=== PATIENT | male | born 1950 | race Caucasian/White ===

== ENCOUNTER 2019-05-28 09:05 | Observation (INO) ==
--- NOTE | 2019-05-28 09:45 | General Surgery Consult Note ---
History of Present Illness Patient information: Note initiated : 05/28/19 at 9:40 am Service Date, if different from initiated Date: [] Patient: Addy Barnes 69 y/o M admitted on for Left Calf Wound Debridement. Chief Complaint: [] Consult date: 05/27/19 Requesting physician: Clement Mojica (Wound Care . LEFT leg wound) History of present illness: I saw this patient along with Dr. Jorge Morrison in wound care center and subsequently discussed his presentation with "Ted Mojica PA-C in ER. I have reviewed the work up and ant gone through the lab results, imaging studies ordered. This is an established patient at wound care center. He presents with worsening of skin and skin structures infection / inflammation. He needs OR surgical debridement with Versajet. Tissue samples to be obtained for biopsies and cultures at the time of the procedure. Medications and Allergies Home Medications Medication Instructions Recorded Confirmed Type Albuterol Sulfate 1 puff INH Q6H PRN 05/27/19 05/27/19 History Aspirin [Adult Aspirin] 81 mg PO DAILY 05/27/19 05/27/19 History Bisoprolol-Hctz 5-6.25 mg Tab 1 tab PO DAILY 05/27/19 05/27/19 History Cetirizine HCl [Zyrtec] 10 mg PO DAILY 05/27/19 05/27/19 History Diclofex Dc Pack 1 dose TOPICAL Q6H PRN 05/27/19 05/27/19 History Diphenoxylat-Atrop 2.5-0.025/5 1 tab PO Q6H 05/27/19 05/27/19 History Efudex 1 dose TOPICAL BID 05/27/19 05/27/19 History FLUoxetine 40 mg PO DAILY 05/27/19 05/27/19 History Fluorouracil 1 dose TOPICAL DAILY 05/27/19 05/27/19 History Hydrochlorothiazide [Oretic] 1 tab PO DAILY 05/27/19 05/27/19 History Lisinopril 2.5 mg PO DAILY 05/27/19 05/27/19 History Lisinopril 20 mg PO DAILY 05/27/19 05/27/19 History Omeprazole 20 mg PO DAILY 05/27/19 05/27/19 History One Daily Multivitamin 1 tab PO DAILY 05/27/19 05/27/19 History Pravastatin 40 mg PO DAILY 05/27/19 05/27/19 History Prazosin 5 mg PO DAILY 05/27/19 05/27/19 History Preservision Areds Softgel 2 cap PO DAILY 05/27/19 05/27/19 History Tamsulosin 0.4 cap PO DAILY 05/27/19 05/27/19 History Vitamin D3 2 tab PO DAILY 05/27/19 05/27/19 History traZODone HCL [Trazodone HCl] 1 tab PO DAILY 05/27/19 05/27/19 History Allergies Allergy/AdvReac Type Severity Reaction Status Date / Time No Known Drug Allergies Allergy Unverified 05/27/19 13:31 Exam - General physical appearance well developed, well nourished, no distress - Eyes PERRL, normal ocular movement - ENT normal pinna, normal mucosa, no congestion - Head Head exam IM: Present: atraumatic, normocephalic - Neck no masses, trachea midline, no venous distension - Cardiovascular Cardiovascular exam IM: Present: normal rate and rhythm - Respiratory normal respiratory effort, clear to auscultation - Abdomen Abdomen: Present: soft, non tender, bowel sounds - Integumentary Present: other (COMPLEX Skin ans skin structure infection, LEFT lower medial leg) - Neurologic Present: other (No neurological deficits) - Musculoskeletal Present: normal posture - Psychiatric Present: oriented to time, oriented to person, oriented to place, speech is normal Results - Labs All other labs normal. Assessment and Plan (1) Sepsis Status: Acute Priority: Medium Comment: Assessment: Complicated skin and skin structure infection LEFT lower leg. Plan: OR surgical debridemetn with VERSAJET irrigation and tissue biopsies and cultures from deep tissues. (2) Nonhealing skin ulcer Status: Acute Qualifiers: Non-pressure ulcer stage: limited to breakdown of skin Qualified Code(s): L98.491 - Non-pressure chronic ulcer of skin of other sites limited to breakdown of skin
[2019-05-28] MEDS ORDERED: VANCOMYCIN 1,000 MG in 0.9 % SODIUM CHLORIDE 250 ML IV ONE (10:07)
[2019-05-28] MEDS ORDERED: cefTRIAXone 1 GM VIAL IV ONE (10:08)
[2019-05-28] MEDS ORDERED: GENTAMICIN SULFATE 800 MG/20 ML VIAL IR ONE (10:49)
[2019-05-28] MEDS ORDERED: fentaNYL 100 MCG/2 ML VIAL IV ONE (11:59)
[2019-05-28] MEDS ORDERED: PROPOFOL 200 MG/20 ML VIAL IV ONE (11:59)
[2019-05-28] MEDS ORDERED: KETAMINE 100 MG/ML ML IV ONE (11:59)
[2019-05-28] MEDS ORDERED: ONDANSETRON 4 MG/2 ML VIAL IV ONE (11:59)
[2019-05-28] MEDS ORDERED: GLYCOPYRROLATE 0.2 MG/ML VIAL IV ONE (11:59)
[2019-05-28] MEDS ORDERED: DEXAMETHASONE 10 MG/ML VIAL IV ONE (11:59)
[2019-05-28] MEDS ORDERED: LIDOCAINE HCL/PF 100 MG/5 ML SYRINGE IV ONE (11:59)
[2019-05-28] MEDS ORDERED: ONDANSETRON 4 MG/2 ML VIAL IV PRN (12:02)
[2019-05-28] MEDS ORDERED: fentaNYL 100 MCG/2 ML VIAL IV PRN (12:02)
[2019-05-28] MEDS ORDERED: IPRATROPIUM/ALBUTEROL 3 ML AMPUL.NEB NEB PRN (12:02)
[2019-05-28] MEDS ORDERED: FLUMAZENIL 0.1 MG/ML ML IV PRN (12:02)
[2019-05-28] MEDS ORDERED: PROMETHAZINE 25 MG/ML VIAL IV PRN (12:02)
[2019-05-28] MEDS ORDERED: MEPERIDINE 25 MG/ML SYRINGE IV PRN (12:02)
[2019-05-28] MEDS ORDERED: ATROPINE SULFATE 0.4 MG/ML VIAL IV PRN (12:02)
[2019-05-28] MEDS ORDERED: METOPROLOL TARTRATE 5 MG/5 ML VIAL IV PRN (12:02)
[2019-05-28] MEDS ORDERED: ACETAMINOPHEN 1,000 MG/100 ML BOTTLE IV ONE (12:02)
[2019-05-28] MEDS ORDERED: NALOXONE HCL 0.4 MG/ML VIAL IV PRN (12:02)
[2019-05-28] MEDS ORDERED: METHOCARBAMOL 1,000 MG/10 ML VIAL IV PRN (12:02)
[2019-05-28] MEDS ORDERED: HYDROmorphone 2 MG/ML VIAL IV PRN (12:02)
[2019-05-28] MEDS ORDERED: ePHEDrine 50 MG/ML AMPUL IV PRN (12:02)
[2019-05-28] MEDS ORDERED: diphenhydrAMINE 50 MG/ML VIAL IV PRN (12:02)
[2019-05-28] MEDS ORDERED: LACTATED RINGERS 1,000 ML IV SCH (12:15)
--- NOTE | 2019-05-28 13:00 | Brief Operative Note ---
Date of procedure: 05/28/19 Pre-op diagnosis: Dermatitis / Cellulitis CSSSI Left lower medial leg and calf Post-op diagnosis: same Procedure: Versajet debridement and deep tissue for c/s. Wound dimensions Left medial superior 4 x 5 x 0.5 CM Left medial inferior 6 x 7 x 0.5 CM Grafts/Implants: No Anesthesia: GLMA Complications: none Surgeon: Marquise Mckoy Estimated blood loss (cc): 10 Specimens Removed/Pathology: other Condition: stable Disposition: other (Operation well toelrated. ALL counts reported to be correct.)
[2019-05-28] MEDS ORDERED: oxyCODONE/APAP 5/325MG TABLET PO PRN (13:25)
[2019-05-28] MEDS ORDERED: oxyCODONE/APAP 5/325MG TABLET PO ONE ×2 (13:41→14:48)
--- NOTE | 2019-05-28 13:45 | Operative Note ---
DATE OF OPERATION: 05/28/2019 PREOPERATIVE DIAGNOSES: 1. Dermatitis, cellulitis left lower medial calf and leg. -Patient with a history of venous leg ulcers and varicose veins. 2. Acute complicated skin and skin structure inflammation/infection. POSTOPERATIVE DIAGNOSES: 1. Dermatitis, cellulitis left lower medial calf and leg- Patient with a history of venous leg ulcers and varicose veins. 2. Acute complicated skin and skin structure inflammation/infection. OPERATION: VersaJet debridement and deep tissue for c/s. WOUND DIMENSIONS: Left medial superior 4 x 5 x 0.5 cm, left medial inferior 6 x 7 x 0.5 cm. ANESTHESIA: General laryngeal mask airway. BACK ROLL LATHE OPERATOR: Og Larose CRNA SURGEON: Marquise Mckoy M.D. COMPLICATIONS: None. BLOOD LOSS: About 10 mL. INSTRUMENT COUNT: Count of all swabs, instruments and needles was reported to be correct. This is a 69-year-old gentleman who was initially seen in the wound care clinic for nonhealing wounds of left lower medial leg. He was referred to ER yesterday due to change in his wounds and for cellulitis. acute inflammation, and tenderness along the ulcer site. It was clearly not possible to treat / debride this at the clinic. The patient is therefore taken to the operating room for OR debridement with Versajet and obtaining deep tissue for culture and sensitivities. Preoperative workup was unremarkable for any acute abnormalities. A venous Doppler was negative for deep venous thrombosis. PROCEDURE NOTE: After obtaining informed consent, patient was taken to the operating room. He was anesthetized uneventfully in supine position using laryngeal mask airway. Timeout was called. Intravenous antibiotics were given. Preoperative photographs were taken. The left lower extremity was widely cleaned, prepped and draped from the toes up to the lower thigh. We first proceeded to clean this wound by using pickups and scissors. The devitalized portion of the demarcated skin edges were excised. Later, we used a VersaJet ultrasound-guided hydro-debrider dissector. One liter of normal saline mixed with 800 mg of gentamicin solution was used. Careful tangential debridement of the wounds was carried out from margins toward the center. There was an intervening gap between the two wounds. This was carefully cleaned and debrided as well. Upon completion, the wound bed was clean with capillary back bleed from wound bed. We obtained deep tissue biopsy from the base of the ulcer, along the medial lower leg area. Hemostasis was achieved with pressure and elevation. Dressings consisted of Xeroform gauze, 4 x 4 gauze, Kerlix, Coban and RJ bandages respectively. She recovered from anesthesia uneventfully. She was taken to in stable condition. After the operation, I went out and spoke with patient's . PLAN: The plan is to observe the patient in the recovery area. Subject to satisfactory progress, the patient will be sent home and followed at the clinic or admitted for extended recovery. VD:analisa Job ID: [id number] Doc ID: [id number] Marquise WEATHERS
[2019-05-28] MEDS: oxyCODONE/APAP 5/325MG TABLET PO PRN ×2 (19:48→23:59)
[2019-05-29] MEDS: oxyCODONE/APAP 5/325MG TABLET PO PRN ×5 (04:31→18:58)
[2019-05-29] MEDS ORDERED: oxyCODONE/APAP 10/325MG TABLET PO PRN (08:55)
[2019-05-29] MEDS ORDERED: oxyCODONE/APAP 5/325MG TABLET PO PRN (09:02)
--- NOTE | 2019-05-29 10:53 | General Surgery Progress Note ---
Subjective Patient reports: still having pain, voiding w/o difficulty, no flatus, nausea, afebrile Narrative: Note initiated : 05/29/19 at 10:51 am Service Date, if different from initiated Date: [] Patient: Addy Barnes 69 y/o M admitted on for Left Calf Wound Debridement. Chief Complaint: [] Objective Temp Pulse Resp BP Pulse Ox 98.7 F 76 16 106/63 96 05/29/19 08:24 05/29/19 08:24 05/29/19 08:24 05/29/19 04:32 05/29/19 08:24 AVSS No changes AYAN Left leg toes PWD Dressings intact. No breakthrough bleeding. Has NOT gotten OOB Has NOT ambulated yet. - Additional Data Intake & Output - Last 24 hours: Intake & Output 05/27/19 05/28/19 05/29/19 05/30/19 05:59 05:59 05:59 05:59 Intake Total 1870 Output Total 760 350 Balance 1110 -350 Weight 180 lb Assessment and Plan (1) Sepsis Problem details: Assessment: Complicated skin and skin structure infection LEFT lower leg. Plan: OR surgical debridemetn with VERSAJET irrigation and tissue biopsies and cultures from deep tissues. Status: Acute Current Visit: Yes (2) Nonhealing skin ulcer Status: Acute Current Visit: No - Narrative A/P Narrative: Assessment: Post operative pain and nausea. Not back to ADL at this time. Plan: Pain medications adjusted. Will hold discharge for now. Reassess in AM and likely D/C. - Time Spent With Patient Total time spent is greater than 50% in coordination of care (as documented) at patient's floor/unit and/or counseling patient: 15 - 24 minutes
[2019-05-29] MEDS: ZOLPIDEM 5 MG TABLET PO PRN (21:14)
[2019-05-30] MEDS: oxyCODONE/APAP 5/325MG TABLET PO PRN ×5 (01:48→22:50)
[2019-05-30] MEDS ORDERED: POLYETHYLENE GLYCOL 3350 17 GM PACKET PO ONE (11:29)
--- NOTE | 2019-05-30 11:33 | General Surgery Progress Note ---
Subjective Patient reports: pain is less, no bowel movement, afebrile, other (PAINFUL to get OOB abd ambulate. [place]. Has steps to climb to get in.) Narrative: Note initiated : 05/30/19 at 11:30 am Service Date, if different from initiated Date: [] Patient: Addy Barnes 69 y/o M admitted on 05/29/19 for Left Calf Wound Debridement. Chief Complaint: [] Objective Temp Pulse Resp BP Pulse Ox 96.5 F L 62 18 140/82 91 05/30/19 08:15 05/30/19 08:15 05/30/19 08:15 05/30/19 08:15 05/30/19 08:15 AVSS. No changes AYAN. LLE Dressings CDI Toes PWD. Constipated. Labs: Staph aureus Sensitivity pending. - Additional Data Intake & Output - Last 24 hours: Intake & Output 05/28/19 05/29/19 05/30/19 05/31/19 05:59 05:59 05:59 05:59 Intake Total 1870 2030 480 Output Total 760 2275 150 Balance 1110 -245 330 Weight 180 lb Assessment and Plan (1) Sepsis Problem details: Assessment: Complicated skin and skin structure infection LEFT lower leg. Plan: OR surgical debridemetn with VERSAJET irrigation and tissue biopsies and cultures from deep tissues. Status: Acute Current Visit: Yes (2) Nonhealing skin ulcer Status: Acute Current Visit: No - Narrative A/P Narrative: Assessment: Slow progress and resolution of pain. Has NOT ambulated freely. Constipated. Plan: Stool softeners. Physical Therapy eval. Dressing change in AM Likely D/C in AM and f/u at wound clinic - Time Spent With Patient Total time spent is greater than 50% in coordination of care (as documented) at patient's floor/unit and/or counseling patient: 15 - 24 minutes
[2019-05-30] MEDS: ZOLPIDEM 5 MG TABLET PO PRN (21:15)
[2019-05-31] MEDS: oxyCODONE/APAP 5/325MG TABLET PO PRN ×3 (02:34→10:42)
[2019-05-31] MEDS ORDERED: FLU VACC QS2019-20(6MOS UP)/PF 60 MCG/0.5 ML SYRINGE IM ONE (10:00)
[2019-05-31] MEDS ORDERED: PNEUMOCOCCAL 23-VAL P-SAC VAC 0.5 ML SYRINGE IM ONE (10:00)
--- NOTE | 2019-05-31 10:53 | General Surgery Progress Note ---
Subjective Patient reports: feels better, pain is less, bowel movement, afebrile, other (Slept well. Ambulated to Bath Room. No problems reported. He lives near [facility] ID) Narrative: Note initiated : 05/31/19 at 10:48 am Service Date, if different from initiated Date: [] Patient: Addy Barnes 69 y/o M admitted on 05/29/19 for Left Calf Wound Debridement. Chief Complaint: [] Objective Temp Pulse Resp BP Pulse Ox 97.2 F 62 18 159/87 90 05/31/19 07:13 05/31/19 04:00 05/31/19 07:13 05/31/19 07:13 05/31/19 07:13 Patient seen with Mayra AMBRIZ, Wound Care and Amaury AMBRZI. AVSS. no changes AYAN. Primary dressing removed. Significant improvement in wound bed. Granulating surface 100%. NO odor, No warmth. Periwound skin and subcutaneous tissue at baseline. Inflammation resolved. Wound Cultures reviewed. Staph aureus. LIGHT growth. Source adequately treated / wound bed improved. - Additional Data Intake & Output - Last 24 hours: Intake & Output 05/29/19 05/30/19 05/31/19 06/01/19 05:59 05:59 05:59 05:59 Intake Total 1870 2030 2540 Output Total 760 2275 1200 350 Balance 1110 -245 1340 -350 Weight 180 lb 183 lb Assessment and Plan (1) Sepsis Problem details: Assessment: Complicated skin and skin structure infection LEFT lower leg. Plan: OR surgical debridemetn with VERSAJET irrigation and tissue biopsies and cultures from deep tissues. Status: Acute Current Visit: Yes (2) Nonhealing skin ulcer Status: Acute Current Visit: No - Time Spent With Patient Total time spent is greater than 50% in coordination of care (as documented) at patient's floor/unit and/or counseling patient: Assessment: Satisfactory progress. Will now treat with local wound care. OTC pain meds PRN. Patient's is a [employer]. will do dressing changes. F/u at wound care center in one week. 25 - 35 minutes
--- NOTE | 2019-06-03 16:39 | Discharge Summary ---
DATE OF ADMISSION: 05/29/2019 DATE OF DISCHARGE: 05/31/2019 DATE OF ADMISSION: 05/28/2019 DATE OF DISCHARGE 05/31/2019 DISCHARGE DIAGNOSIS: Admitted with complicated skin and skin structure infection and sepsis. Site of sepsis, left lower leg cellulitis complicated skin and skin structure infection around a venous leg ulcer. CONDITION AT THE TIME OF DISCHARGE: Afebrile. Vital signs are stable. Activities of daily living are within normal limits. The patient is now able to tolerate pain, get out of bed, and ambulate. He has tolerated regular diet, had a bowel movement, and is voiding urine without catheter. HOSPITAL COURSE: This gentleman was admitted emergently to the hospital with complicated skin and skin structure infection. He underwent supportive treatment and was taken to the operating room for surgical debridement. Postoperatively, the main problem keeping him in the hospital was control of pain and for observation of breakthrough bleeding. After he met his discharge criteria and was able to get out of the bed and ambulate, he was discharged from the hospital with detailed instructions about postoperative wound care and will be followed up at the wound care clinic. VD:[email or web address] Job ID: [id number] Doc ID: [id number] Marquise Mckoy MD
== END 2019-05-31 12:25 | disposition home or self-care (01) ==
LOC: SUR 09:05 → MEDSUR 09:05
PROVIDERS: ADMIT Specialist; ATTEND Specialist